=== PATIENT | male | born 1950 | race Caucasian/White ===

== ENCOUNTER 2018-03-23 06:21 | Emergency (ER) | payer MEDICARE, MEDICAID, OTHER ==
[~2018-03-23] VITALS: Ht 172.7 cm; Wt 135.0 kg
[~2018-03-23 06:21] MED LIST: ATOR40TA PO; BUPR100T13 PO; CARV-49 PO; FURO-150 PO; HYDR-565 PO; ISOS60TA4 PO; LOSA1TAB41 PO; METF10004 PO; NITR0.4T SL
[2018-03-23 06:51] LABS: BASOPHILS # (AUTO) 0.1 X10'3 (0-0.2); BASOPHILS % (AUTO) 0.9 % (0-1); EOSINOPHILS # (AUTO) 0.2 X10'3 (0-0.9); EOSINOPHILS % (AUTO) 1.5 % (0-6); HEMATOCRIT 44.2 % (42.0-52.0); HEMOGLOBIN 14.9 g/dl (14.0-17.9); LYMPHOCYTES # (AUTO) 3.5 X10'3 (1.1-4.8); LYMPHOCYTES % (AUTO) 27.1 % (21-51); MEAN CORPUSCULAR HEMOGLOBIN 30.7 PG (27.0-31.0); MEAN CORPUSCULAR HGB CONC 33.7 % (33.0-36.5); MEAN CORPUSCULAR VOLUME 91.1 FL (78-98); MEAN PLATELET VOLUME 8.8 FL (7.4-10.4); MONOCYTES % (AUTO) 7.7 % (2-12); NEUTROPHILS # (AUTO) 8.2 X10'3 (1.8-7.7); NEUTROPHILS % (AUTO) 62.8 % (42-75); PLATELET COUNT 239 X10'3 (140-440); RED BLOOD COUNT 4.86 X10'6 (4.70-6.10)
[2018-03-23 07:00] LABS: PROTHROMBIN TIME 10.4 SECONDS (9.0-12.0)
[2018-03-23 07:06] LABS: ALANINE AMINOTRANSFERASE 28 U/L (12-78); ALBUMIN 3.5 G/DL (3.4-5.0); ALKALINE PHOSPHATASE 75 IU/L (46-116); ANION GAP 9 (8-16); ASPARTATE AMINO TRANSFERASE 15 U/L (10-37); BILIRUBIN,TOTAL 0.7 MG/DL (0.1-1.0); BLOOD UREA NITROGEN 19 MG/DL (7-18); BUN/CREATININE RATIO 19.2 (5.4-32.0); CHLORIDE 101 MMOL/L (99-107); CREATININE 0.99 MG/DL (0.60-1.10); GLUCOSE 123 MG/DL (70-104); LIPASE 99 U/L (73-393); POTASSIUM 4.3 MMOL/L (3.5-5.1); SODIUM 139 MMOL/L (135-145); TOTAL CARBON DIOXIDE 29.4 MMOL/L (24-32); eGFR 76 ML/MIN
[2018-03-23] MEDS ORDERED: morphine 4 MG/ML inj SYRINge IV ONE (07:20)
[2018-03-23] MEDS ORDERED: ketorolac trometh. 30mg/ml inj. IV ONE (07:20)
[2018-03-23] MEDS ORDERED: HYDR-565 PO (08:26)
[2018-03-23 08:40] VITALS: BP 178/89
[2018-03-23 08:55] LABS: CLARITY,URINE SLIGHTLY CLOUDY (Clear); COLOR,URINE YELLOW (Yellow); GLUCOSE, URINE NEGATIVE (Neg); KETONES,URINE NEGATIVE (Neg); LEUKOCYTE ESTERASE ,URINE NEGATIVE (Neg); NITRITES, URINE NEGATIVE (Neg); OCCULT BLOOD,URINE NEGATIVE (Neg); PROTEIN,URINE TRACE mg/dl (Neg); UROBILINOGEN,URINE 0.2 E.U/dL (0.2-1.0)
[2018-03-23 08:57] LABS: UA COLLECTION TYPE CLN CATCH MIDSTREAM
[2018-03-23 09:07] LABS: BACTERIA,URINE NONE SEEN /HPF (Neg); MUCUS STRANDS MODERATE /LPF (Neg); RBC,URINE 0-2 /HPF (0-2); SQUAMOUS EPITHELIAL CELL,UR FEW /LPF (FEW); WBC,URINE 0-4 /HPF (0-4)
== END 2018-03-23 08:42 | disposition home or self-care (01) ==
LOC: ER 06:21
DX: M54.9 Dorsalgia, unspecified (principal); R10.11 Right upper quadrant pain; I25.10 Atherosclerotic heart disease of native coronary artery without angina pectoris; E78.00 Pure hypercholesterolemia, unspecified; I10 Essential (primary) hypertension; I25.2 Old myocardial infarction; F17.200 Nicotine dependence, unspecified, uncomplicated; G89.29 Other chronic pain; Z98.61 Coronary angioplasty status; Z98.890 Other specified postprocedural states; Z79.84 Long term (current) use of oral hypoglycemic drugs; Z79.899 Other long term (current) drug therapy
CPT/HCPCS: 36415; 74176; 80053; 81001; 83690; 85025; 85610; 93005; 96374; 96375; 99285; J1885; J2270

== ENCOUNTER 2020-09-28 12:06 | Emergency (ER) | payer OTHER, MEDICARE, MEDICAID ==
[~2020-09-28] VITALS: Ht 172.7 cm; Wt 129.5 kg
[~2020-09-28 12:06] MED LIST changes: +HYDR-4353 PO; -HYDR-565 PO; +METF-438 PO; -METF10004 PO
[2020-09-28 12:47] LABS: BASOPHILS % (AUTO) 0.7 % (0-1); EOSINOPHILS # (AUTO) 0.3 X10'3 (0-0.9); EOSINOPHILS % (AUTO) 4.3 % (0-6); HEMATOCRIT 39.8 % (42.0-52.0); HEMOGLOBIN 13.5 g/dl (14.0-17.9); LYMPHOCYTES # (AUTO) 2.4 X10'3 (1.1-4.8); LYMPHOCYTES % (AUTO) 34.9 % (21-51); MEAN CORPUSCULAR HGB CONC 33.9 g/dL (33.0-36.5); MEAN CORPUSCULAR VOLUME 91.7 FL (78-98); MEAN PLATELET VOLUME 8.8 FL (7.4-10.4); MONOCYTES # (AUTO) 0.6 X10'3 (0-0.9); MONOCYTES % (AUTO) 8.1 % (2-12); NEUTROPHILS # (AUTO) 3.6 X10'3 (1.8-7.7); PLATELET COUNT 211 X10'3 (140-440); RED BLOOD COUNT 4.34 X10'6 (4.70-6.10); RED CELL DISTRIBUTION WIDTH 14.2 % (11.5-14.5); WHITE BLOOD COUNT 6.9 X10'3 (4.5-11.0)
[2020-09-28 13:01] LABS: PARTIAL THROMBOPLASTIN TIME 27 SECONDS (22-32)
[2020-09-28 13:10] LABS: BILIRUBIN,TOTAL 0.4 MG/DL (0.1-1.0); BLOOD UREA NITROGEN 23 MG/DL (7-18); BUN/CREATININE RATIO 27.7 (5.4-32.0); CHLORIDE 106 MMOL/L (99-107); CREATININE 0.83 MG/DL (0.60-1.10); GLUCOSE 172 MG/DL (70-104); POTASSIUM 3.7 MMOL/L (3.5-5.1); SODIUM 143 MMOL/L (135-145); eGFR > 90 ML/MIN
[2020-09-28 13:12] LABS: TROPONIN I < 0.04 NG/ML (0.0-0.05)
[2020-09-28 13:17] LABS: ALANINE AMINOTRANSFERASE 39 U/L (12-78); ALBUMIN 3.5 G/DL (3.4-5.0); ALBUMIN/GLOBULIN RATIO 1.1 (1.1-1.5); ALKALINE PHOSPHATASE 82 IU/L (46-116); ANION GAP 7 (8-16); ASPARTATE AMINO TRANSFERASE 17 U/L (10-37); CALCIUM 8.7 MG/DL (8.5-10.1); TOTAL CARBON DIOXIDE 29.7 MMOL/L (24-32); TOTAL PROTEIN 6.8 G/DL (6.4-8.2)
--- NOTE | 2020-09-28 16:05 | NUR ---
PT HAS HX OF PARKINSONS
[2020-09-28 16:06] VITALS: BP 143/97
== END 2020-09-28 16:07 | disposition home or self-care (01) ==
LOC: ER 12:07
DX: G62.9 Polyneuropathy, unspecified (principal); I25.10 Atherosclerotic heart disease of native coronary artery without angina pectoris; E78.00 Pure hypercholesterolemia, unspecified; I10 Essential (primary) hypertension; I25.2 Old myocardial infarction; G89.29 Other chronic pain; Z98.890 Other specified postprocedural states; Z79.899 Other long term (current) drug therapy
CPT/HCPCS: 36415; 70450; 71045; 80053; 84484; 85025; 85610; 85730; 93005; 99285

== ENCOUNTER 2022-02-25 10:37 | Emergency (ER) | payer OTHER, MEDICARE, MEDICAID ==
[~2022-02-25] VITALS: Ht 172.7 cm; Wt 126.0 kg
[~2022-02-25 10:37] MED LIST changes: +ATOR-2 PO; -ATOR40TA PO; -BUPR100T13 PO; +BUPR300T7 PO; -CARV-49 PO; +FLO0.4C PO; -HYDR-4353 PO; +ISOS30TA84 PO; -ISOS60TA4 PO
[2022-02-25 11:41] LABS: BASOPHILS % (AUTO) 0.6 % (0-1); EOSINOPHILS # (AUTO) 0.2 X10'3 (0-0.9); EOSINOPHILS % (AUTO) 3.3 % (0-6); HEMATOCRIT 41.5 % (42.0-52.0); HEMOGLOBIN 13.8 g/dl (14.0-17.9); LYMPHOCYTES # (AUTO) 2.2 X10'3 (1.1-4.8); LYMPHOCYTES % (AUTO) 31.8 % (21-51); MEAN CORPUSCULAR HEMOGLOBIN 30.5 PG (27.0-31.0); MEAN CORPUSCULAR HGB CONC 33.3 g/dL (33.0-36.5); MEAN CORPUSCULAR VOLUME 91.6 FL (78-98); MEAN PLATELET VOLUME 8.5 FL (7.4-10.4); MONOCYTES # (AUTO) 0.7 X10'3 (0-0.9); MONOCYTES % (AUTO) 10.4 % (2-12); NEUTROPHILS # (AUTO) 3.7 X10'3 (1.8-7.7); NEUTROPHILS % (AUTO) 53.9 % (42-75); PLATELET COUNT 197 X10'3 (140-440); RED BLOOD COUNT 4.53 X10'6 (4.70-6.10); RED CELL DISTRIBUTION WIDTH 14.4 % (11.5-14.5); WHITE BLOOD COUNT 6.9 X10'3 (4.5-11.0)
[2022-02-25 11:58] LABS: ALANINE AMINOTRANSFERASE 34 U/L (12-78); ALBUMIN 3.6 G/DL (3.4-5.0); ALBUMIN/GLOBULIN RATIO 1.1 (1.1-1.5); ALKALINE PHOSPHATASE 72 IU/L (46-116); ANION GAP 12 (8-16); ASPARTATE AMINO TRANSFERASE 21 U/L (10-37); BILIRUBIN,TOTAL 0.4 MG/DL (0.1-1.0); BLOOD UREA NITROGEN 20 MG/DL (7-18); BUN/CREATININE RATIO 22.2 (5.4-32.0); CALCIUM 8.9 MG/DL (8.5-10.1); CHLORIDE 109 MMOL/L (99-107); GLUCOSE 94 MG/DL (70-104); POTASSIUM 3.7 MMOL/L (3.5-5.1); SODIUM 146 MMOL/L (135-145); TOTAL CARBON DIOXIDE 24.9 MMOL/L (24-32); TOTAL PROTEIN 6.8 G/DL (6.4-8.2); eGFR 83 ML/MIN
--- NOTE | 2022-02-25 12:18 | NUR ---
To CT at this time.
[2022-02-25 14:10] LABS: CLARITY,URINE CLEAR (Clear); GLUCOSE, URINE >=1000 mg/dl (Neg); KETONES,URINE NEGATIVE (Neg); LEUKOCYTE ESTERASE ,URINE NEGATIVE (Neg); NITRITES, URINE NEGATIVE (Neg); OCCULT BLOOD,URINE NEGATIVE (Neg); PROTEIN,URINE NEGATIVE (Neg); UROBILINOGEN,URINE 0.2 E.U/dL (0.2-1.0)
[2022-02-25 14:12] LABS: COLOR,URINE STRAW (Yellow); UA COLLECTION TYPE CLN CATCH MIDSTREAM
[2022-02-25 14:26] LABS: BACTERIA,URINE NONE SEEN /HPF (Neg); MUCUS STRANDS NONE SEEN /LPF (Neg); RBC,URINE NONE SEEN /HPF (0-2); SQUAMOUS EPITHELIAL CELL,UR NONE SEEN /LPF (FEW); WBC,URINE 0-4 /HPF (0-4)
[2022-02-25 14:37] VITALS: BP 121/69
== END 2022-02-25 14:38 | disposition home or self-care (01) ==
LOC: ER 10:38
DX: G89.29 Other chronic pain (principal); M54.59 Other low back pain; E78.00 Pure hypercholesterolemia, unspecified; I11.9 Hypertensive heart disease without heart failure; E06.9 Thyroiditis, unspecified; E11.9 Type 2 diabetes mellitus without complications; L40.9 Psoriasis, unspecified
CPT/HCPCS: 36415; 70450; 80053; 81001; 85025; 99284

== ENCOUNTER 2025-01-12 17:36 | Inpatient (IN) | payer BC, MEDICAID, OTHER ==
[~2025-01-12] VITALS: Ht 172.7 cm; Wt 126.6 kg
[2025-01-12 19:01] LABS: ALBUMIN 3.6 G/DL (3.4-5.0); ANION GAP 11 (8-16); BLOOD UREA NITROGEN 19 MG/DL (7-18); BUN/CREATININE RATIO 22.4 (10.0-20.0); CALCIUM 8.9 MG/DL (8.5-10.1); CHLORIDE 102 MMOL/L (99-107); CREATININE 0.85 MG/DL (0.60-1.10); GLUCOSE 271 MG/DL (70-104); POTASSIUM 3.4 MMOL/L (3.5-5.1); SODIUM 140 MMOL/L (135-145); TOTAL CARBON DIOXIDE 26.8 MMOL/L (24-32); eCRCL 75 ML/MIN; eGFR 88 ML/MIN
[2025-01-12 19:04] LABS: BASOPHILS % (AUTO) 0.7 % (0-1); EOSINOPHILS # (AUTO) 0.3 X10'3 (0-0.9); EOSINOPHILS % (AUTO) 4.4 % (0-6); HEMOGLOBIN 14.5 g/dl (14.0-17.9); LYMPHOCYTES # (AUTO) 2.2 X10'3 (1.1-4.8); LYMPHOCYTES % (AUTO) 33.4 % (21-51); MEAN CORPUSCULAR HEMOGLOBIN 32.1 PG (27.0-31.0); MEAN CORPUSCULAR HGB CONC 34.6 g/dL (33.0-36.5); MEAN CORPUSCULAR VOLUME 92.9 FL (78-98); MEAN PLATELET VOLUME 9.5 FL (7.4-10.4); MONOCYTES # (AUTO) 0.6 X10'3 (0-0.9); MONOCYTES % (AUTO) 8.6 % (2-12); NEUTROPHILS # (AUTO) 3.5 X10'3 (1.8-7.7); NEUTROPHILS % (AUTO) 52.9 % (42-75); PLATELET COUNT 250 X10'3 (140-440); RED BLOOD COUNT 4.52 X10'6 (4.70-6.10); RED CELL DISTRIBUTION WIDTH 13.5 % (11.5-14.5); WHITE BLOOD COUNT 6.7 X10'3 (4.5-11.0)
[2025-01-12 19:05] LABS: APTT 29 SECONDS (22-32); PROTHROMBIN TIME 10.9 SECONDS (9.0-12.0)
[2025-01-12] MEDS ORDERED: iohexol 350MG/ML 100ml bottle IV ONE (23:27)
[2025-01-13] MEDS ORDERED: bisacodyl 10mg suppository rectal RC PRN (01:25)
[2025-01-13] MEDS ORDERED: potassium Cl 40MEQ/1/2NS 520ml 520 ML IV PRN (01:25)
[2025-01-13] MEDS ORDERED: ondansetron/PF 4mg/2ml inj IV PRN (01:25)
[2025-01-13] MEDS ORDERED: magnesium Cl slow-release 64mg tablet PO PRN (01:25)
[2025-01-13] MEDS ORDERED: magnesium sulf-water 4G/100mL 100 ML IV PRN (01:25)
[2025-01-13] MEDS ORDERED: mag hydrox/Alum hydrox/simeth 30ml oral suspension PO PRN (01:25)
[2025-01-13] MEDS ORDERED: magnesium sulf-water 2g/50mL 50 ML IV PRN (01:25)
[2025-01-13] MEDS ORDERED: morphine 2 MG/ML inj. syringe IV PRN (01:25)
[2025-01-13] MEDS ORDERED: potassium Cl 20 mEq SR tablet PO PRN (01:25)
[2025-01-13] MEDS ORDERED: acetaminophen 325mg tablet PO PRN (01:25)
[2025-01-13] MEDS: atorvastatin 20mg tablet PO SCH (02:01)
[2025-01-13] MEDS: clopidogrel 300mg tablet PO ONE (02:01)
[2025-01-13] MEDS ORDERED: glucagon, human recombinant 1mg kit SUBCUT PRN (02:45)
[2025-01-13] MEDS ORDERED: DEXTROSE 15 GM of carb/4 tabs (each vial/BOTTLE has 4 tablets) PO PRN ×2 (02:45)
[2025-01-13] MEDS ORDERED: dextrose 50%-water 50ml dispensing syringe IV PRN ×2 (02:45)
[2025-01-13] MEDS ORDERED: HYDR-3973 (02:55)
[2025-01-13] MEDS ORDERED: AMLO-381 PO (02:55)
[2025-01-13] MEDS ORDERED: ASPI-1265 PO (02:55)
[2025-01-13] MEDS ORDERED: CHLO25TA10 PO (02:55)
[2025-01-13] MEDS ORDERED: EMPA25TA PO (02:55)
[2025-01-13] MEDS ORDERED: DULO-31 PO (02:55)
[2025-01-13] MEDS ORDERED: BUPR75FI3 PO (02:56)
[2025-01-13 03:14] LABS: HEMOGLOBIN A1C 7.3 % (4.5-6.2)
[2025-01-13 03:17] LABS: APTT 29 SECONDS (22-32); PROTHROMBIN TIME 10.9 SECONDS (9.0-12.0)
[2025-01-13] MEDS: insulin glargine (Lantus) pen - multi-dose SQ SCH (03:24)
[2025-01-13 03:32] LABS: PRO BRAIN NATRIURETIC PEPTIDE < 30 PG/ML (0-125)
[2025-01-13] MEDS: potassium Cl 20 mEq SR tablet PO PRN (03:42)
[2025-01-13] MEDS: INSULIN LISPRO 100 UNIT/ML INSULN.PEN MULTI-DOSE SQ SCH (07:00)
[2025-01-13] MEDS: BUPRENORPHINE HCL 75 MCG BU SCH (07:43)
[2025-01-13] MEDS: docusate sod 100mg capsule PO SCH (07:44)
[2025-01-13] MEDS: losartan 50mg tablet PO SCH (07:45)
[2025-01-13] MEDS: duloxetine 30mg CAPSULE.DR PO SCH (07:45)
[2025-01-13] MEDS: tamsulosin 0.4mg capsule PO SCH (07:45)
[2025-01-13] MEDS: amLODIPine 5mg tablet PO SCH (07:46)
[2025-01-13] MEDS: aspirin 81mg, enteric-coated 1 TAB TABLET.DR PO SCH (07:46)
[2025-01-13] MEDS: isosorbide mononitrate 30mg tab.SR.24H PO SCH (07:46)
[2025-01-13] MEDS: clopidogrel 75mg tablet PO SCH (07:47)
[2025-01-13] MEDS: K and/or MAG REPLACEMENT MC SCH (07:48)
[2025-01-13] MEDS: enoxaparin 40mg/0.4ml syringe SUBCUT SCH (07:48)
[2025-01-13] MEDS: chlorthalidone 25mg tablet PO SCH (07:53)
[2025-01-13 08:15] LABS: BASOPHILS # (AUTO) 0.1 X10'3 (0-0.2); BASOPHILS % (AUTO) 0.8 % (0-1); EOSINOPHILS # (AUTO) 0.3 X10'3 (0-0.9); EOSINOPHILS % (AUTO) 4.8 % (0-6); HEMATOCRIT 43.7 % (42.0-52.0); HEMOGLOBIN 14.9 g/dl (14.0-17.9); LYMPHOCYTES # (AUTO) 1.9 X10'3 (1.1-4.8); LYMPHOCYTES % (AUTO) 30.6 % (21-51); MEAN CORPUSCULAR HEMOGLOBIN 31.5 PG (27.0-31.0); MEAN CORPUSCULAR HGB CONC 34.2 g/dL (33.0-36.5); MEAN CORPUSCULAR VOLUME 92.1 FL (78-98); MEAN PLATELET VOLUME 8.7 FL (7.4-10.4); MONOCYTES # (AUTO) 0.6 X10'3 (0-0.9); MONOCYTES % (AUTO) 9.7 % (2-12); NEUTROPHILS # (AUTO) 3.4 X10'3 (1.8-7.7); NEUTROPHILS % (AUTO) 54.1 % (42-75); PLATELET COUNT 229 X10'3 (140-440); RED BLOOD COUNT 4.75 X10'6 (4.70-6.10); RED CELL DISTRIBUTION WIDTH 13.5 % (11.5-14.5); WHITE BLOOD COUNT 6.3 X10'3 (4.5-11.0)
[2025-01-13 08:30] LABS: ALANINE AMINOTRANSFERASE 38 U/L (12-78); ALBUMIN 3.8 G/DL (3.4-5.0); ALBUMIN/GLOBULIN RATIO 1.2 (1.1-1.5); ALKALINE PHOSPHATASE 73 IU/L (46-116); ANION GAP 6 (8-16); ASPARTATE AMINO TRANSFERASE 17 U/L (10-37); BILIRUBIN,TOTAL 0.8 MG/DL (0.1-1.0); BLOOD UREA NITROGEN 17 MG/DL (7-18); BUN/CREATININE RATIO 23.9 (10.0-20.0); CALCIUM 8.8 MG/DL (8.5-10.1); CHLORIDE 104 MMOL/L (99-107); CREATININE 0.71 MG/DL (0.60-1.10); GLUCOSE 171 MG/DL (70-104); POTASSIUM 3.8 MMOL/L (3.5-5.1); SODIUM 141 MMOL/L (135-145); TOTAL CARBON DIOXIDE 31.3 MMOL/L (24-32); eCRCL 90 ML/MIN; eGFR > 90 ML/MIN
[2025-01-13 08:37] LABS: PRO BRAIN NATRIURETIC PEPTIDE < 30 PG/ML (0-125)
[2025-01-13 10:45] LABS: BILIRUBIN,URINE NEGATIVE (Neg); CLARITY,URINE CLEAR (Clear); COLOR,URINE YELLOW (Yellow); GLUCOSE, URINE >=1000 mg/dl (Neg); KETONES,URINE NEGATIVE (Neg); LEUKOCYTE ESTERASE ,URINE NEGATIVE (Neg); NITRITES, URINE NEGATIVE (Neg); OCCULT BLOOD,URINE NEGATIVE (Neg); PROTEIN,URINE NEGATIVE (Neg); UROBILINOGEN,URINE 0.2 E.U/dL (0.2-1.0)
[2025-01-13 10:58] LABS: UA COLLECTION TYPE NON-SPECIFIED
[2025-01-13 11:00] LABS: BACTERIA,URINE NONE SEEN /HPF (Neg); MUCUS STRANDS NONE SEEN /LPF (Neg); RBC,URINE 0-2 /HPF (0-2); SQUAMOUS EPITHELIAL CELL,UR NONE SEEN /LPF (FEW); WBC,URINE 0-4 /HPF (0-4)
[2025-01-13 11:40] VITALS: BP 146/72; PULSE 62; RESP 16; TEMP 97.4; O2SAT 97
[2025-01-13] MEDS: magnesium hydroxide 30ml (MOM) UD suspension PO PRN (12:33)
[2025-01-13 12:59] VITALS: BP_SYST 114; BP_SYST 118; BP_SYST 122; BP_DIAS 55; BP_DIAS 62; BP_DIAS 65; PULSE 63; PULSE 64; PULSE 72
[2025-01-13] MEDS: HYDROcodone/acetaminophen 5mg/325mg tablet PO PRN (17:16)
[2025-01-13 18:00] VITALS: BP 121/68; PULSE 73; RESP 16; TEMP 97.8; O2SAT 97
[2025-01-13 20:01] VITALS: RESP 18
[2025-01-13 22:00] VITALS: BP 100/48; PULSE 69; RESP 16; TEMP 97.2; O2SAT 96
[2025-01-14 02:00] VITALS: BP 113/53; PULSE 59; RESP 15; TEMP 98.3; O2SAT 93
[2025-01-14 06:00] VITALS: BP 106/49; PULSE 54; RESP 18; TEMP 96.3; O2SAT 93
[2025-01-14 07:24] LABS: ALANINE AMINOTRANSFERASE 30 U/L (12-78); ALBUMIN 3.2 G/DL (3.4-5.0); ALBUMIN/GLOBULIN RATIO 1.1 (1.1-1.5); ALKALINE PHOSPHATASE 63 IU/L (46-116); ANION GAP 9 (8-16); BILIRUBIN,TOTAL 0.8 MG/DL (0.1-1.0); BLOOD UREA NITROGEN 19 MG/DL (7-18); BUN/CREATININE RATIO 29.2 (10.0-20.0); CALCIUM 8.6 MG/DL (8.5-10.1); CHLORIDE 105 MMOL/L (99-107); CHOL/HDL RATIO 1.8 (0.00-4.99); CHOLESTEROL 107 MG/DL (0-200); CREATININE 0.65 MG/DL (0.60-1.10); GLUCOSE 117 MG/DL (70-104); HDL CHOLESTEROL 59 MG/DL (35-60); LDL CHOLESTEROL 40 MG/DL (50-100); SODIUM 141 MMOL/L (135-145); TOTAL CARBON DIOXIDE 27.1 MMOL/L (24-32); TOTAL PROTEIN 6.2 G/DL (6.4-8.2); TRIGLYCERIDES 68 MG/DL (20-135); eCRCL 98 ML/MIN; eGFR > 90 ML/MIN
[2025-01-14 07:28] LABS: ASPARTATE AMINO TRANSFERASE 33 U/L (10-37); POTASSIUM 3.9 MMOL/L (3.5-5.1)
[2025-01-14 07:42] VITALS: BP 124/78; PULSE 62
[2025-01-14 07:43] VITALS: BP 114/71; PULSE 64
[2025-01-14] MEDS: losartan 50mg tablet PO SCH (08:00)
[2025-01-14] MEDS: chlorthalidone 25mg tablet PO SCH (08:27)
[2025-01-14 08:54] LABS: BASOPHILS # (AUTO) 0.1 X10'3 (0-0.2); EOSINOPHILS # (AUTO) 0.3 X10'3 (0-0.9); EOSINOPHILS % (AUTO) 5.5 % (0-6); HEMATOCRIT 42.4 % (42.0-52.0); HEMOGLOBIN 14.3 g/dl (14.0-17.9); LYMPHOCYTES # (AUTO) 2.1 X10'3 (1.1-4.8); LYMPHOCYTES % (AUTO) 36.1 % (21-51); MEAN CORPUSCULAR HEMOGLOBIN 30.9 PG (27.0-31.0); MEAN CORPUSCULAR HGB CONC 33.6 g/dL (33.0-36.5); MEAN CORPUSCULAR VOLUME 91.9 FL (78-98); MEAN PLATELET VOLUME 9.2 FL (7.4-10.4); MONOCYTES # (AUTO) 0.6 X10'3 (0-0.9); MONOCYTES % (AUTO) 10.5 % (2-12); NEUTROPHILS # (AUTO) 2.7 X10'3 (1.8-7.7); NEUTROPHILS % (AUTO) 46.9 % (42-75); PLATELET COUNT 203 X10'3 (140-440); RED BLOOD COUNT 4.61 X10'6 (4.70-6.10); RED CELL DISTRIBUTION WIDTH 13.5 % (11.5-14.5); WHITE BLOOD COUNT 5.7 X10'3 (4.5-11.0)
[2025-01-14 10:00] VITALS: BP 120/59; PULSE 64; RESP 15; TEMP 97.3; O2SAT 95
[2025-01-14] MEDS ORDERED: LOSA50TA64 PO (10:16)
[2025-01-14] MEDS ORDERED: DULO-31 PO (10:16)
[2025-01-14] MEDS ORDERED: CHLO25TA11 PO (10:16)
== END 2025-01-14 12:25 | disposition home or self-care (01) | DRG 149 ==
LOC: ER 17:37 → UNDOADMIN 01-13 01:31 → ED HOLD 01-13 01:31 → ORTHO 4S 01-13 11:40 → ED HOLD 01-13 11:40
PROVIDERS: ADMIT Surgery Surgical Critical Care; ATTEND Internal Medicine
PROC: B3251ZZ Computerized Tomography (CT Scan) of Bilateral Common Carotid Arteries using Low Osmolar Contrast (ICD-10-PCS; principal; 2025-01-12)
PROC: B32G1ZZ Computerized Tomography (CT Scan) of Bilateral Vertebral Arteries using Low Osmolar Contrast (ICD-10-PCS; 2025-01-12)
PROC: B32R1ZZ Computerized Tomography (CT Scan) of Intracranial Arteries using Low Osmolar Contrast (ICD-10-PCS; 2025-01-12)
PROC: B3281ZZ Computerized Tomography (CT Scan) of Bilateral Internal Carotid Arteries using Low Osmolar Contrast (ICD-10-PCS; 2025-01-12)
DX: R42 Dizziness and giddiness (principal); Z68.41 Body mass index [BMI] 40.0-44.9, adult; E78.00 Pure hypercholesterolemia, unspecified; I25.10 Atherosclerotic heart disease of native coronary artery without angina pectoris; T50.995A Adverse effect of other drugs, medicaments and biological substances, initial encounter; E66.01 Morbid (severe) obesity due to excess calories; I10 Essential (primary) hypertension; N40.0 Benign prostatic hyperplasia without lower urinary tract symptoms; E11.9 Type 2 diabetes mellitus without complications; G89.4 Chronic pain syndrome; E03.9 Hypothyroidism, unspecified; M54.9 Dorsalgia, unspecified; Z79.84 Long term (current) use of oral hypoglycemic drugs; Z79.899 Other long term (current) drug therapy; Z90.49 Acquired absence of other specified parts of digestive tract; I25.2 Old myocardial infarction; Y92.89 Other specified places as the place of occurrence of the external cause; Z86.73 Personal history of transient ischemic attack (TIA), and cerebral infarction without residual deficits; Z95.5 Presence of coronary angioplasty implant and graft; Z85.820 Personal history of malignant melanoma of skin
CPT/HCPCS: 36415; 70450; 70496; 70498; 70551; 71045; 80048; 80053; 80061; 81001; 82948; 83036; 83735; 83880; 84132; 85025; 85610; 85730; 87081; 93005; 93306; 96372; 97161; 97530; 99285; G0378; J1650; J1815; Q9967

== ENCOUNTER 2025-05-07 21:05 | Inpatient (IN) | payer OTHER, BC, MEDICAID ==
[~2025-05-07] VITALS: Ht 172.7 cm; Wt 127.0 kg
[~2025-05-07 21:05] MED LIST changes: +ASPI-1265 PO; -BUPR300T7 PO; +DULO-31 PO; +EMPA25TA PO; -FURO-150 PO; +HYDR-3973; -LOSA1TAB41 PO; +LOSA50TA64 PO
--- NOTE | 2025-05-07 21:18 | ELECTROCARDIOGRAPH REPORT ---
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 Geovanni Vizcaino Measurements Intervals [place] Rate: 69 P: 34 ME: 196 QRS: 3 QRSD: 103 T: -29 QT: 381 QTc: 408 Interpretive Statements Sinus rhythm Abnormal R-wave progression, early transition Nonspecific T abnormalities, diffuse leads Artifact in lead(s) I,II,III,aVR,aVL,V1,V5,V6 Electronically Signed On 05-08-2025 1:29:[address] Geovanni Vizcaino Please click the below link to view image of tracing.
[2025-05-07 21:40] LABS: MEAN PLATELET VOLUME 8.8 FL (7.4-10.4); RED CELL DISTRIBUTION WIDTH 14.5 % (11.5-14.5)
--- NOTE | 2025-05-07 22:02 | RADIOLOGY REPORT ---
CHEST RADIOGRAPH Indication: CP Technique: Single frontal view of the chest was obtained Comparison: DI CHEST,SINGLE VIEW on DOS: 02/21/25, DI CHEST,SINGLE VIEW on DOS: 01/12/25, CHEST,SINGLE V IEW on DOS: 12/05/21 FINDINGS: Lines and Tubes: None Lungs: No focal consolidation. Pleura: No effusion. No pneumothorax. Cardiomediastinal contours: Unremarkable Bones: No acute osseous abnormality. Partially imaged right-sided neural stimulator with the generato r overlying the right upper to mid lung zone. IMPRESSION: No acute cardiopulmonary disease.
[2025-05-07 22:04] LABS: CREATININE 0.80 MG/DL (0.60-1.10); PRO BRAIN NATRIURETIC PEPTIDE 100 PG/ML (0-125); TOTAL CARBON DIOXIDE 24.0 MMOL/L (24-32); eCRCL 80 ML/MIN; eGFR > 90 ML/MIN
--- NOTE | 2025-05-07 23:05 | Physician Documentation ---
History of Present Illness ~ Chief Complaint: Chest Pain Stated Complaint: CHEST PAIN Time Seen by MD: 21:51 OK to notify your PCP?: Yes Primary Medical Doctor: [facility] Source: patient, RN/, RN notes reviewed, old records Mode of Arrival: POV Exam Limitations: no limitations HPI PATIENT SEEN IN BED 6 This patient is a 74 y/o male who presents to ED with chief complaint of chest pain. Patient states that this pain started two days ago, and describes it as a sharp pain. He states that since his chest pain started, it has radiated to his shoulders, then his upper back. Patient reports that the pain has since changed location, and radiates from his chest to his lower back. He denies any ripping or tearing sensations. He does have a history of MO, TIA and CVA. He is followed by narcotics agent, Dr. Luther. Patient denies any other associated symptoms at this time. Patient denies any other alleviating or exacerbating factors. Medication Reconciliation Allergies: Uncoded Allergies: BLOOD (Allergy, Severe, (ALEVISM REASON), 02/21/25) Scheduled Aspirin (Aspirin), 1 TAB.CHEW PO DAILY, (Reported) Atorvastatin Calcium (Atorvastatin Calcium), 1 TAB PO DAILY, (Reported) Duloxetine Hcl* (Cymbalta*), 30 MG PO DAILY Empagliflozin (Jardiance), 1 TAB PO DAILY, (Reported) Isosorbide Mononitrate (Isosorbide Mononitrate Er), 0.5 TAB PO QAM, (Reported) Levothyroxine Sodium* (Synthroid*), Unknown Dose PO DAILY, (Reported) Losartan Potassium (Losartan Potassium), 50 MG PO DAILY Metformin HCl (Metformin HCl), 1 TAB PO Q12H, (Reported) Tamsulosin Hcl (Flomax), 1 CAP PO DAILY, (Reported) Tizanidine Hcl (Zanaflex), 1 CAP PO HS, (Reported) Miscellaneous Medications Hydrocodone Bit/Acetaminophen (Hydrocodone-Apap 10-325 Tablet), (Reported) Nitroglycerin (Nitrostat), 0.4 MG SL, (Reported) Past Medical History 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*, Coronary Artery Disease, High Cholesterol, Hypertension, Myocardial Infarction, Sleep Apnea, BPH, Diabetes, Hypothyroidism, Chronic Pain, Chronic Back Pain, Psoriasis Past Surgical History: angioplasty, brain surgery, cholecystectomy, orthopedic surgeries Patient History: FH: COPD (chronic obstructive pulmonary disease) MOTHER FH: diabetes mellitus MOTHER Brother FH: myocardial infarction FATHER Smoking Status: Unknown if ever smoked Alcohol Use: None Drug Use: none Lives with: Spouse, Family Lives In: Home Review of Systems All Other Systems at this time: Reviewed and Negative Cardiovascular: Reports: chest pain Physical Exam Vital Signs: RN Vital Signs have been reviewed: Yes, Temperature: 97.8, Source: Oral, Heart Rate: 70, Respiratory Rate: 19, BP: 183/94, Pulse Oximetry: 94, Weight: 127.270 Physical Exam General: The patient is well developed, well nourished, nontoxic appearing and is in no acute distress. Skin: [place], warm and dry with no rashes. HEENT: Head was normocephalic and atraumatic. Eyes - pupils equal, round, reactive to light and accommodation. Extraocular movements were intact. Conjunctivae were nonicteric. The mouth and oropharynx were clear with moist mucous membranes. There were no pharyngeal exudates or erythema. Neck: Supple and nontender. There was no jugular venous distention, lymphadenopathy, thyromegaly or masses. Chest: No reproducible chest wall pain. Clear to auscultation bilaterally without wheezes, rales or rhonchi. No accessory muscle use. No dullness to percussion. Heart: Rate regular and rhythmic. S1, S2. No murmurs. Palpation of the chest wall was normal. No rubs or thrills. Abdomen: Soft, nontender and nondistended. Positive bowel sounds. No guarding or rebound. No hepatosplenomegaly or palpable masses. Extremities: Pitting edema to bilateral lower extremities. No clubbing or cyanosis. The patient moves all extremities. Pulses were equal and symmetric. Neurologic: Cranial nerves II-XII were intact. Sensation was intact to light touch throughout. Motor strength was 5/5 in all four extremities. Deep tendon reflexes were intact in both upper and lower extremities. Psychologic: The patient was oriented to person, place and time. The patient demonstrated appropriate judgement and insight. Progress Progress Note 0004: Paged Hospitalist 0008: Case discussed with hospitalist who agrees to evaluate patient for admission. Results/Orders Reviewed/noted all lab results: Yes Results/Orders Orders - STEPHEN VIZCAINO MD Chest,Single View (05/07/25 21:12) Monitor (05/07/25 21:12) Saline Lock (05/07/25 21:12) Oxygen (05/07/25 21:12) Electrocardiogram (05/07/25 21:12) Cta Aorta Disection (05/07/25 23:06) Page Hospitalist (05/08/25 00:04) Fill Out Med Reconciliation (05/08/25 00:04) Page Hospitalist (05/08/25 00:04) Fill Out Med Reconciliation (05/08/25 00:04) Completed Orders - STEPHEN VIZCAINO MD Chest,Single View (05/07/25 21:12) Cbc/Diff (05/07/25 21:12) BMP (05/07/25 21:12) PBNP (05/07/25 21:12) Electrocardiogram (05/07/25 21:12) Hs Troponin I W Calculations (05/07/25 21:12) Hs Troponin I W Calculations (05/08/25 00:12) Cta Aorta Disection (05/07/25 23:06) Iohexol 350mg/Ml 100ml (Omnipaque 350mg/ (05/07/25 23:10) Aspirin 81mg Chew Tablet (Aspirin 81mg C (05/08/25 00:10) Hgb A1c (05/07/25 21:30) Medications Received in ER Medications (Trade) Dose Ordered Sig/Jocelyn Route PRN Reason Start Time Stop Time Status Last Admin Dose Admin (aspirin 81MG chew tablet) 324 mg ONCE ONCE PO 05/08/25 00:10 05/08/25 00:11 DC 05/08/25 01:00 324 MG Vital Signs 05/07/25 05/07/25 05/07/25 05/07/25 21:09 21:45 22:06 23:00 Temp 97.8 Pulse 69 70 68 Resp 18 20 19 13 B/P (MAP) 179/88 183/94 (123) 123/64 (83) Pulse Ox 94 94 94 05/08/25 00:00 Pulse 60 Resp 12 B/P (MAP) 151/93 (112) Pulse Ox 95 Laboratory Tests Test 05/07/25 21:30 05/07/25 21:46 05/07/25 23:02 White Blood Count 6.0 Red Blood Count 4.93 Hemoglobin 15.3 Hematocrit 45.4 Mean Corpuscular Volume 92.0 Mean Corpuscular Hemoglobin 30.9 Mean Corpuscular Hemoglobin Concent 33.6 Red Cell Distribution Width 14.5 Platelet Count 224 Mean Platelet Volume 8.8 Neutrophils (%) (Auto) 53.0 Lymphocytes (%) (Auto) 33.1 Monocytes (%) (Auto) 8.9 Eosinophils (%) (Auto) 4.5 Basophils (%) (Auto) 0.5 Neutrophils # (Auto) 3.2 Lymphocytes # (Auto) 2.0 Monocytes # (Auto) 0.5 Eosinophils # (Auto) 0.3 Basophils # (Auto) 0.0 CBC Comment Sodium Level 141 Potassium Level 4.2 Chloride Level 105 Carbon Dioxide Level 24.0 Anion Gap 12 Blood Urea Nitrogen 18 Creatinine 0.80 Estimated GFR/1.73 m2 > 90 BUN/Creatinine Ratio 22.5 H Glucose Level 212 H Hemoglobin A1c 6.8 H Calcium Level 9.0 Troponin I High Sensitivity 20 20 Pro-B-Type Natriuretic Peptide 100 Albumin 3.7 Chemistry Comments Urine Specimen Description Voided Urine Color Yellow Urine Clarity Clear Urine pH 6.0 Urine Specific [place] 1.020 Urine Protein Negative Urine Glucose (UA) >=1000 H Urine Ketones Negative Urine Occult Blood Negative Urine Nitrite Negative Urine Bilirubin Negative Urine Urobilinogen 0.2 Urine Leukocyte Esterase Negative Urine RBC None seen Urine WBC None seen Urine Squamous Epithelial Cells None seen Urine Bacteria None seen Urine Culture Indicated Not ind Volume Urine Centrifuged 10 ml Urine Comment Troponin I High Sens Percent Delta 0 Troponin I Hi Sens Absolute Change 0 Re-Evaluation Re-Evaluation : Re-Evaluation: Improved Progress Patient was seen and examined. Patient is given reassurance. Patient was complaining of chest pain. Patient is 74 has multiple risk factors. Pain is slightly concerning in that it is radiating to the neck changing location now radiating to the contralateral neck. Denies any sensation of tearing or ripping. The patient had a CT angiogram to rule out dissection and was within normal limits. That point in time patient will be admitted for cardiac workup. Laboratory work was reassuring. Normal chemistry negative troponins CBC also within normal limits no anemia. Patient was given aspirin and then admitted to the hospitalist service after life-threatening conditions for ruled out. Continuous nurse monitoring interpretation shows normal sinus rhythm heart rate 70s, no ectopy, normal, Pulse oximetry monitor interpretation shows normal oxygenation 95% room air, normal, my interpretation. EKG/XRAY/CT/US/VASC/MRI EKG : Additional Comment Patient: SALOME GRIJALVA Medical Record: [id number] [facility] : 1950, Age: 74Sex: M Location: ED HOLD Patient Status: ADM IN Service Date/Time: Ordering Physician: STEPHEN VIZCAINO MD Exam Name: ELECTROCARDIOGRAM Technologist: [facility] Test Date: 2025-05-07 Test Time: 21:16:13 Pat Name: SALOME GRIJALVA Department: EMERGENCY ROOM Room: ED 6 Gender: M Pacu Rn: IGOR : 1950 Requested By: STEPHEN VIZCAINO Order Number: [id number] [facility] Reading MD: Dr. Stephen Vizcaino Measurements Intervals [place] Rate: 69 P: 34 [place]: 196 QRS: 3 QRSD: 103 T: -29 QT: 381 QTc: 408 Interpretive Statements Sinus rhythm Abnormal R-wave progression, early transition Nonspecific T abnormalities, diffuse leads Artifact in lead(s) I,II,III,aVR,aVL,V1,V5,V6 Electronically Signed On 05-08-2025 1:29:[address] Stephen Vizcaino Please click the below link to view image of tracing. EKG Date and Time:05/07/252115 Electronically Signed by: STEPHEN VIZCAINO MD Date and Time: 05/08/25 012 NO PRIMARY CARE PROVIDER~ cc: ~ Chest X-Ray : Interpreted By: radiologist, both Views: 1 VIEW Additional Comments Patient: SALOME GRIJALVA Medical Record: [id number] [facility] : 1950, Age: 74 Sex: Male Location: ER Patient Status: REG ER Service Date/Time: 05/07/252111 Ordering Physician: STEPHEN VIZCAINO MD Exam: CHEST,SINGLE VIEW CHEST RADIOGRAPH Indication: CP Technique: Single frontal view of the chest was obtained Comparison: DI CHEST,SINGLE VIEW on DOS: 02/21/25, DI CHEST,SINGLE VIEW on DOS: 01/12/25, CHEST,SINGLE VIEW on DOS: 12/05/21 FINDINGS: Lines and Tubes: None Lungs: No focal consolidation. Pleura: No effusion. No pneumothorax. Cardiomediastinal contours: Unremarkable Bones: No acute osseous abnormality. Partially imaged right-sided neural stimulator with the generator overlying the right upper to mid lung zone. IMPRESSION: No acute cardiopulmonary disease. Electronically Signed by:ONELIA KLEIN DO Date & Time: 05/07/252199 Dictated by: ONELIA KLEIN DO Dictation date and time: 05/07/252199 Primary Care Provider: NO PRIMARY CARE PROVIDER cc: STEPHEN VIZCAINO MD ~ IMAGES REVIEWED BY EDMD DR. VIZCAINO WHO AGREES WITH ABOVE FINDINGS CT : Interpreted By: radiologist, both CT: chest With Contrast?: Yes Impression [address] [address] CAT SCAN Patient: SALOME GRIJALVA Medical Record: [id number] [facility] : 1950, Age: 74 Sex: Male Location: ED HOLD Patient Status: ADM IN Service Date/Time: 05/07/252305 Ordering Physician: STEPHEN VIZCAINO MD Exam: CTA AORTA DISECTION CTA AORTA DISSECTION W/ IV CONTRAST HISTORY: chest pain radiating to back tortous aorta COMPARISON: Chest x-ray obtained earlier the same day. TECHNIQUE: Helical axial CT images of the chest, abdomen and upper pelvis were obtained with intravenous contrast. Multiplanar reformats. 3-D postprocessing is performed by technologist including MIP imaging. One or more of the following radiation dose reduction techniques were used for this examination: automated exposure control, adjustment of the mA and/or kV according to patient size, use of iterative reconstruction technique. FINDINGS: Vasculature: Scattered atherosclerotic changes involving the arch and aortoiliac vessels. Otherwise no evidence of aortic aneurysm or dissection at this time. The celiac, superior mesenteric, bilateral renal and inferior mesenteric arteries are grossly patent. No evidence of central pulmonary embolism. CHEST: Mediastinum: Heart is normal in size. No pericardial effusion. A few borderline prominent mediastinal lymph nodes are nonspecific. Coronary artery calcifications. Hypodense lesion in the inferior left thyroid. This can be evaluated with thyroid ultrasound. Pleural cavity: No sizable pleural effusions or pneumothorax. Lungs: Mild dependent atelectasis/ scarring in the lower lobes. Lungs are otherwise grossly clear. Chest wall/axilla: No axillary lymphadenopathy noted. ABDOMEN AND IMAGED PELVIS: Liver: No discrete hepatic lesions identified. Gallbladder and biliary system: Cholelithiasis. No gallbladder wall distention or pericholecystic fluid identified. No biliary ductal dilatation. Pancreas: Negative. Spleen: Negative. Adrenal Glands: Left adrenal nodule measuring approximately 2.6 cm in diameter. This can be further characterized with adrenal MRI. Kidneys: No hydroureteronephrosis. Bowel: No definite evidence of bowel obstruction. No free intraperitoneal air or fluid within the imaged abdomen and pelvis. Visualized appendix is normal caliber. Tiny fat containing umbilical hernia. Osseous structures: No destructive osseous lesions identified. IMPRESSION: No evidence of aortic aneurysm or dissection. Other findings as above. HS:Y Electronically Signed by:ÁNGEL NOLAN MD Date & Time: 05/08/2549 Dictated by: ÁNGEL NOLAN MD Dictation date and time: 05/08/2549 Primary Care Provider: NO PRIMARY CARE PROVIDER cc: STEPHEN VIZCAINO MD ~ IMAGES REVIEWED BY EDMD DR. VIZCAINO WHO AGREES WITH ABOVE FINDINGS Heart Score: Heart Score Response (Comments) Value History Slightly Suspicious 0 EKG Repolarization Disturb 1 Age >65 2 Risk Factors >3 or Hx ASHD 2 Troponin Normal limit 0 Total 5 Medical Decision Making Additional info obtained from: old records Differential Dx:Considerations: Include: angina, aortic dissection, chest wall pain, cholelithiasis, costochondritis, esophageal reflux/spasm, gastritis, myocardial infarction, pericarditis, pleuritis, pancreatitis, pneumonia, pneu mothorax, pulmonary embolus, other Departure Time of Disposition: 00:08 Disposition: 09 ADMITTED INPATIENT Admitted to Inpatient Unit: yes, to hospitalist Admission Level of Care: PCU with Tele Impression: Primary Impression: Chest pain Qualified Codes: R07.9 - Chest pain, unspecified Condition: Guarded Referrals: NO PRIMARY CARE PROVIDER (PCP) Education Educated: Patient Educated regarding: diagnosis Signature Scribe Signature: no scribe. Attestation: The note accurately reflects work and decisions made by me.Stephen Vizcaino MD 05/07/25 23:05 STEPHEN VIZCAINO MD May 07, 2025 23:05
[2025-05-08] VITALS (12 sets, daily range): BP systolic 142–184; BP diastolic 61–99; PULSE 60–83; RESP 16–22; TEMP 97.6–98.6; O2SAT 95–97
[2025-05-08] MEDS ORDERED: TIZA4CAP PO (00:22)
[2025-05-08] MEDS ORDERED: LEVO75TA PO (00:22)
--- NOTE | 2025-05-08 00:53 | RADIOLOGY REPORT ---
CTA AORTA DISSECTION W/ IV CONTRAST HISTORY: chest pain radiating to back tortous aorta COMPARISON: Chest x-ray obtained earlier the same day. TECHNIQUE: Helical axial CT images of the chest, abdomen and upper pelvis were obtained with intrave nous contrast. Multiplanar reformats. 3-D postprocessing is performed by technologist including TEVIN castro. One or more of the following radiation dose reduction techniques were used for this examinati on: automated exposure control, adjustment of the mA and/or kV according to patient size, use of iter ative reconstruction technique. FINDINGS: Vasculature: Scattered atherosclerotic changes involving the arch and aortoiliac vessels. Otherwise n o evidence of aortic aneurysm or dissection at this time. The celiac, superior mesenteric, bilateral renal and inferior mesenteric arteries are grossly patent. No evidence of central pulmonary embolism. CHEST: Mediastinum: Heart is normal in size. No pericardial effusion. A few borderline prominent mediastina l lymph nodes are nonspecific. Coronary artery calcifications. Hypodense lesion in the inferior left thyroid. This can be evaluated with thyroid ultrasound. Pleural cavity: No sizable pleural effusions or pneumothorax. Lungs: Mild dependent atelectasis/ scarring in the lower lobes. Lungs are otherwise grossly clear. Chest wall/axilla: No axillary lymphadenopathy noted. ABDOMEN AND IMAGED PELVIS: Liver: No discrete hepatic lesions identified. Gallbladder and biliary system: Cholelithiasis. No gallbladder wall distention or pericholecystic fl uid identified. No biliary ductal dilatation. Pancreas: Negative. Spleen: Negative. Adrenal Glands: Left adrenal nodule measuring approximately 2.6 cm in diameter. This can be further c haracterized with adrenal MRI. Kidneys: No hydroureteronephrosis. Bowel: No definite evidence of bowel obstruction. No free intraperitoneal air or fluid within the im aged abdomen and pelvis. Visualized appendix is normal caliber. Tiny fat containing umbilical hernia . Osseous structures: No destructive osseous lesions identified. IMPRESSION: No evidence of aortic aneurysm or dissection. Other findings as above. HS:Y
[2025-05-08] MEDS ORDERED: mag hydrox/Alum hydrox/simeth 30ml oral suspension PO PRN (01:35)
[2025-05-08] MEDS ORDERED: magnesium sulf-water 2g/50mL 50 ML IV PRN (01:35)
[2025-05-08] MEDS ORDERED: potassium Cl 40MEQ/1/2NS 520ml 520 ML IV PRN (01:35)
[2025-05-08] MEDS: PERFLUTREN PROTEIN-A MICROSPHR (Optison) 0.22 MG/ML 3ML VIAL IV ONE (01:35)
[2025-05-08] MEDS ORDERED: magnesium Cl slow-release 64mg tablet PO PRN (01:35)
[2025-05-08] MEDS ORDERED: HYDROcodone/acetaminophen 5mg/325mg tablet PO PRN (01:35)
[2025-05-08] MEDS ORDERED: potassium Cl 20 mEq SR tablet PO PRN ×2 (01:35)
[2025-05-08] MEDS ORDERED: ondansetron/PF 4mg/2ml inj IV PRN (01:35)
[2025-05-08] MEDS ORDERED: magnesium sulf-water 4G/100mL 100 ML IV PRN (01:35)
[2025-05-08] MEDS ORDERED: magnesium hydroxide 30ml (MOM) UD suspension PO PRN (01:35)
--- NOTE | 2025-05-08 01:40 | HISTORY AND PHYSICAL-Residence ---
History & Physical Providers to CC Resident Creating Document: BREEZYRONALDO WILLSONKATESH, IRMA ~ History of Present Illness Primary Medical Doctor: OR/[facility] Reason for Admit\Complaint: Chest pain History of Present Illness 74-year-old male, a Jehovah Witness(Ms. Champagne, at bedside) with past medical history of coronary artery disease CVA, type 2 diabetes mellitus, hypertension, hyperlipidemia, CAD, deep brain stimulator for essential tremors, lower backache, sleep apnea, BP hits, hypothyroidism, psoriasis presented to the ER with a chief complaint of chest pain for the past 3-4 days. Radiated into back on aggravated with taking breathe. He do reports upper back pain between the shoulder blades. He has reports swelling of legs. He is following Dr. Luther and is due for one chemical stress test. Denied palpitations, facial puffiness, wheezing, cough, syncope. Discussed discussions with the patient patient wants to be full code Allergies: Uncoded Allergies: BLOOD (Allergy, Severe, (CONGREGATIONAL REASON), 02/21/25) Home Medications Home Medications Active Losartan Potassium 50 Mg Tablet 50 Mg PO DAILY 30 Days Cymbalta* (Duloxetine HCl) 30 Mg Capsule.dr 30 Mg PO DAILY 30 Days Reported Zanaflex (Tizanidine HCl) 4 Mg Capsule 1 Cap PO HS 30 Days Synthroid* (Levothyroxine Sodium) Unknown Strength Tablet Unknown Dose PO DAILY 30 Days Aspirin 81 Mg Tab.chew 1 Tab.chew PO DAILY Jardiance (Empagliflozin) 25 Mg Tablet 1 Tab PO DAILY Hydrocodone-Apap 10-325 Tablet (Acetaminophen/Hydrocodone Bitart) 10mg/325mg Tablet Isosorbide Mononitrate Er (Isosorbide Mononitrate) 30 Mg Tab.er.24h 0.5 Tab PO QAM Flomax (Tamsulosin HCl) 0.4 Mg Cap.sr.24h 1 Cap PO DAILY Atorvastatin Calcium 80 Mg Tablet 1 Tab PO DAILY Nitrostat (Nitroglycerin) 0.4 Mg Tab.subl 0.4 Mg SL Metformin HCl 1,000 Mg Tablet 1 Tab PO Q12H 30 Days Past Medical History Past Medical History Coronary artery disease Hyperlipidemia Hypertension Sleep apnea BP has been Diabetes mellitus Hypothyroidism Chronic pain, Chronic back pain Psoriasis Past Surgical History Surgical History Comment Shoulder and elbow surgeries Left melanoma cancers sensory Deep brain stimulator for essential tremors Family History Family History: FH: COPD (chronic obstructive pulmonary disease) MOTHER FH: diabetes mellitus MOTHER Brother FH: myocardial infarction FATHER Past Social History Smoking: Non-Smoker Alcohol Use: None Drug Use: None Lives with: Spouse, Family Lives In: Home ROS All Other Systems: Reviewed and Negative ROS Reviewed in full and negative except for positive pertinent as in HPI Constitutional: Denies: no symptoms reported Cardiovascular: Reports: chest pain Exam Vitals: Vital Signs Date Time Temp Pulse Resp B/P (MAP) Pulse Ox O2 Delivery O2 Flow Rate FiO2 05/08/25 00:00 60 12 151/93 (112) 95 05/07/25 21:09 97.8 General: General: The patient is well developed, well nourished, nontoxic appearing and is in no acute distress. With deep brain stimulator. Skin: [place], warm and dry with no rashes. HEENT: Head was normocephalic and atraumatic. Eyes - pupils equal, round, reactive to light and accommodation. Extraocular movements were intact. Conjunctivae were nonicteric. The mouth and oropharynx were clear with moist mucous membranes. There were no pharyngeal exudates or erythema. Neck: Supple and nontender. There was no jugular venous distention, lymphadenopathy, thyromegaly or masses. Chest: No reproducible chest wall pain. Clear to auscultation bilaterally without wheezes, rales or rhonchi. No accessory muscle use. No dullness to percussion. Heart: Rate regular and rhythmic. S1, S2. No murmurs. Palpation of the chest wall was normal. No rubs or thrills. Abdomen: Soft, nontender and nondistended. Positive bowel sounds. No guarding or rebound. No hepatosplenomegaly or palpable masses. Extremities: Pitting edema to bilateral lower extremities. No clubbing or cyanosis. The patient moves all extremities. Pulses were equal and symmetric. Neurologic: Cranial nerves II-XII were intact. Sensation was intact to light touch throughout. Motor strength was 5/5 in all four extremities. Deep tendon reflexes were intact in both upper and lower extremities. Psychologic: The patient was oriented to person, place and time. The patient demonstrated appropriate judgement and insight. Skin: [place], warm and dry with no rashes. Diagnostic Data Last Recorded Lab Results: 05/07/25212905/07/252129 Advance Care Planning Advanced Care planning: Add on additional 30 min Additional Plan Chest pain likely secondary to unstable angina versus NSTEMI Heart score of seven EKG showed T-wave inversions in V1 V2, V4 V5 V6 Troponins are negative, proBNP is 100 On nitro, aspirin 81, atorvastatin 80 On Norcos PRN & morphine PRN for pain management Patient is in NPO & being evaluated with Lexiscan CT angiographiy is negative for aortic dissection Consult cardiology in the a.m. Hyperlipidemia Ordered lipid panel Started on 80 mg of atorvastatin and we will taper the dose based upon LDL Hypertension Blood pressure and shearing 180s and then trended down to 150s We will continue losartan 50 Type 2 diabetes mellitus Ordered A1c Blood glucose is in 220s On hyperglycemia hypoglycemia Humalog insulin medium dose protocol Continue to monitor blood glucose with a target of 140-180 Hypothyroidism Order TSH and follow up with the results .start the medication after reconciliation BPH We will continue tamsulosin 0.4 mg Code status: Full code DVT prophylaxis: SubQ heparin PT: Ordered Prognosis: Guarded Diet: NPO Jose Mi IM resident Pt was discussed with the resident team I agree with plan of care and assessment and plan as documented Date of Service: May 08, 2025 Billing Provider: EVE CERVANTES MD, VENKATESH, RES May 08, 2025 01:40 EVE CERVANTES MD May 08, 2025 04:24
[2025-05-08] MEDS: normal saline 1000ml 1,000 ML IV SCH (01:55)
[2025-05-08 02:19] LABS: PHOSPHORUS 3.9 MG/DL (2.3-4.5)
[2025-05-08] MEDS ORDERED: dextrose 50%-water 50ml dispensing syringe IV PRN ×2 (02:35)
[2025-05-08] MEDS ORDERED: DEXTROSE 15 GM of carb/4 tabs (each vial/BOTTLE has 4 tablets) PO PRN ×2 (02:35)
[2025-05-08] MEDS ORDERED: glucagon, human recombinant 1mg kit SUBCUT PRN (02:35)
[2025-05-08 02:58] LABS: LEUKOCYTE ESTERASE ,URINE NEGATIVE (Neg); OCCULT BLOOD,URINE NEGATIVE (Neg)
[2025-05-08 03:01] LABS: NITRITES, URINE NEGATIVE (Neg); UA COLLECTION TYPE VOIDED
[2025-05-08 03:14] LABS: SQUAMOUS EPITHELIAL CELL,UR NONE SEEN /LPF (FEW)
[2025-05-08] MEDS: INSULIN LISPRO 100 UNIT/ML INSULN.PEN MULTI-DOSE SQ SCH (06:54)
[2025-05-08] MEDS: docusate sod 100mg capsule PO SCH (07:36)
[2025-05-08] MEDS: K and/or MAG REPLACEMENT MC SCH (07:36)
[2025-05-08] MEDS: heparin, porcine 5000 units/ml vial SQ SCH (07:37)
[2025-05-08] MEDS: aspirin 81mg, enteric-coated 1 TAB TABLET.DR PO SCH (07:49)
[2025-05-08] MEDS: duloxetine 30mg CAPSULE.DR PO SCH (07:50)
[2025-05-08] MEDS: EMPAGLIFLOZIN 25 MG TABLET PO SCH (07:50)
[2025-05-08] MEDS ORDERED: isosorbide mononitrate 30mg tab.SR.24H PO SCH (08:00)
[2025-05-08] MEDS: regadenoson 0.4mg/5ml syringe IV ONE (13:47)
--- NOTE | 2025-05-08 16:28 | RADIOLOGY REPORT ---
Reason for study/Clinical History: Unstable angina Comparison Study: None Myocardial Perfusion Study with SPECT Technique: The patient received an intravenous injection of 8.7 mCi of technetium-99m Sestamibi whi carlos at rest. After a short delay, SPECT tomographic images of the heart were obtained. The patient kanchan harris went to the stress lab where they received an intravenous Lexiscan utilizing standard protocol. 37 mCi of technetium-99m Sestamibi was injected intravenously immediately after the start of the in fusion. Gated SPECT tomographic images of the heart were acquired and processed. Findings: Rotating planar images show no significant attenuation artifact. Non reversible defect is present in the inferior wall and apex. The left ventricular ejection fraction is 28 %. 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
[2025-05-08] MEDS: pantoprazole 40mg Tablet.DR PO ONE (16:43)
--- NOTE | 2025-05-08 18:47 | CARDIOLOGY REPORT ---
APPROVED REPORT EXAM: Comprehensive 2D, Doppler, and color-flow Echocardiogram. Patient Location: [facility] B Blood Pressure: 165/83 mmHg Heart Rate: 78 bpm Rhythm: Sinus Rhythm Indications Chest Pain Hx of CAD/ [place] Hx of CVA/TIA Hypertension HDL PTCA Stents X 1 (2004) Extractions Technician: Bunny Luther MD Previous echo: 01/13/2025 EF: 60% 2D Dimensions RVDd 3.6 cm LA Diam4.4 cm RA Minor3.9 cmLVOT Diameter 2.04 (1.8-2.4cm) IVC 18.54 mmCO 3.9 L/min M-Mode Dimensions RVDd 3.57 (2.1-3.2cm) Left Atrium(MM) 3.70 (2.5-4.0cm) IVSd 1.34 (0.7-1.1cm) LVDd 4.54 (4.0-5.6cm) Aortic Root 3.91 (2.2-3.7cm) PWd 1.42 (0.7-1.1cm) Aortic Cusp Exc 1.83 (1.5-2.0cm) IVSs 1.34 cm MV EPSS 1.2 (<0.5cm) LVDs 3.16 (2.0-3.8cm) FS (%) 30 % PWs 1.90 cm ESV(Teich) 39.7 ml LVEF(%) 58 (>50%) Aortic Valve AoV Peak Jim. 209.6 cm/s AoV VTI 41.0 cm AO Peak GR. 17.6 mmHg AO Mean GR. 9 mmHg LVOT VTI 30.33 cm LVOT Peak Jim. 155.3 cm/s WILLIE(VTI)/BSA 2.41 cm2/m2 WILLIE (VTI) 2.41 cm2 AI P 1/2 Time 568 ms Mitral Valve MV E Velocity 63.9 cm/s MV Peak Gr. 6 mmHg MV DECEL TIME 232 ms MV A Velocity 103.4 cm/s MV Mean Gr. 2 mmHg MV PHT 68 ms E/A Ratio 0.6 MVA (PHT) 3.24 cm2 MV MOpt265.7 cm/sMV VMean61.9 cm/s MVA VTI3.38 cm2MV VTI29.2 cm TDI Medial E' P. V 9.93 cm/s E/Medial E' 6.4 Tricuspid Valve TR P. Velocity 174 cm/s RAP ESTIMATE 10 mmHg TR Peak Gr. 12 mmHg RVSP 22 mmHg LEFT VENTRICLE Normal LV size and function. Mild concentric hypertrophy. Overall LVEF is 60%. RIGHT VENTRICLE Right ventricle is moderately dilated with normal function. Estimated PA systolic pressure is 22 mmHg . ATRIA Left atrium is mildly dilated. The right atrium size appears to be normal. AORTIC VALVE Trileaflet AV appears sclerotic without stenosis. Mild insufficiency. MITRAL VALVE Mild MV annular calcification without stenosis. Trace regurgitation. TRICUSPID VALVE TV appears structurally normal with trace regurgitation. PULMONIC VALVE Grossly normal PV without stenosis, physiologic insufficiency. GREAT VESSELS Aortic root is dilated and measures at 3.9 cm. IVC is normal in size and collapses less t villa 50% with inspiration. PERICARDIUM Normal pericardium. No pericardial effusion seen. Other Information Study Quality: Fair. TDS due to body habitus. Conclusion Normal LV size and function. Mild concentric hypertrophy. Overall LVEF is 60%. Right ventricle is moderately dilated with normal function. Estimated PA systolic pressure is 22 mmHg . Left atrium is mildly dilated. The right atrium size appears to be normal. Trileaflet AV appears sclerotic without stenosis. Mild insufficiency. Mild MV annular calcification without stenosis. Trace regurgitation. TV appears structurally normal with trace regurgitation. Aortic root is dilated and measures at 3.9 cm. Normal pericardium. No pericardial effusion seen.
[2025-05-09] VITALS (9 sets, daily range): BP systolic 122–181; BP diastolic 66–97; PULSE 62–84; RESP 14–18; TEMP 97.1–97.9; O2SAT 92–100
[2025-05-09 06:49] LABS: MEAN PLATELET VOLUME 8.8 FL (7.4-10.4); RED CELL DISTRIBUTION WIDTH 13.8 % (11.5-14.5)
[2025-05-09 07:21] LABS: CHOL/HDL RATIO 1.9 (0.00-4.99); CREATININE 0.69 MG/DL (0.60-1.10); LDL CHOLESTEROL 42 MG/DL (50-100); TOTAL CARBON DIOXIDE 23.1 MMOL/L (24-32); eCRCL 92 ML/MIN; eGFR > 90 ML/MIN
[2025-05-09] MEDS ORDERED: aspirin 81mg, enteric-coated 1 TAB TABLET.DR PO SCH (08:00)
[2025-05-09] MEDS: isosorbide mononitrate 30mg tab.SR.24H PO SCH (08:54)
[2025-05-09] MEDS: pantoprazole 40mg Tablet.DR PO SCH (08:55)
[2025-05-09] MEDS: cloNIDine 0.2 MG/24 HR patch (7 day patch) TD ONE (10:50)
[2025-05-09] MEDS: hydrALAZINE 20mg/ml inj. IV PRN (10:54)
--- NOTE | 2025-05-09 12:51 | PROGRESS NOTE ---
Daily Progress Note Providers to CC ~ Antibiotic Timeout Antibiotic Ordered?: No Subjective No acute events overnight. Patient examined at bedside. No new complaints, not in acute distress. Patient denies chest pain, sob, palpitations, abdominal pain, n/v/d. Vss, tele sinus in 60s. Labs unremarkable. Resistant hypertension, antihypertensives adjusted. Objective Vital Signs Date Time Temp Pulse Resp B/P (MAP) Pulse Ox O2 Delivery O2 Flow Rate FiO2 05/09/25 11:25 84 122/66 (84) 05/09/25 11:00 97.5 16 96 Room Air Result Diagram: 05/09/2561305/09/25 06 Physical Exam General: Generalized weakness, A&Ox 3, NAD HEENT: Normocephalic, PERRLA Neck: Supple, trachea midline, no JVD Chest: Clear to auscultation bilaterally Cardiovascular: RRR, S1&S2 GI: Soft and nontender Extremities: No cyanosis/clubbing/or edema SHIP KEEPER: CN II-XII intact, no focal deficits Musculoskeletal: No paraspinal muscle tenderness, no muscle spasm Skin: Warm and intact Problem\Assessment\Plan Assessment Hypertensive emergency- POA Chest pain likely 2/2 HTN emergency HTN Hyperlipidemia NIDDM Class III obesity Hx IL s/p stent (2004, Dr. Margie Luther) Hypothyroidism BPH -EKG showed T-wave inversions in V1 V2, V4 V5 V6, trops negative, pBNP 100, CTA negative aortic dissection, Candelaria negative for reversible ischemia but shows chronic infarct consistent with past medical history, A1c 6.8%, LDL42, TGL 103 -05/09: tele sinus in 60s Plan -statin, aspirin, prn nitroglycerin, tamsulosin, hyper/hypoglycemic protocol, losartan, amlodipine, hydralazine, isosorbide, clonidine Code status: Full code DVT prophylaxis: heparin Date of Service: May 09, 2025 Billing Provider: JEREMY BEDOYA Common Visit Codes: [id number] INP/OBS CARE(HIGH) JEREMY BEDOYA May 09, 2025 12:51
[2025-05-09] MEDS: HYDROcodone/acetaminophen 10/325mg tab PO PRN (13:48)
[2025-05-10 02:00] VITALS: BP 149/74; PULSE 63; RESP 17; TEMP 97.7; O2SAT 95
[2025-05-10 06:17] LABS: MEAN PLATELET VOLUME 9.4 FL (7.4-10.4); RED CELL DISTRIBUTION WIDTH 13.9 % (11.5-14.5)
[2025-05-10 06:34] LABS: CREATININE 0.81 MG/DL (0.60-1.10); TOTAL CARBON DIOXIDE 24.9 MMOL/L (24-32); eCRCL 79 ML/MIN; eGFR > 90 ML/MIN
[2025-05-10 07:00] VITALS: BP 152/78; PULSE 63; RESP 20; TEMP 97.8; O2SAT 96
[2025-05-10 11:00] VITALS: BP 148/98; PULSE 79; RESP 16; TEMP 98; O2SAT 94
[2025-05-10] MEDS ORDERED: HYDR25TA90 PO (12:27)
[2025-05-10] MEDS ORDERED: NOR5T PO (12:27)
--- NOTE | 2025-05-10 14:53 | DISCHARGE SUMMARY ---
Discharge Summary Providers to ~ Discharge Summary Admission Diagnosis: Chest pain Hospital Course DATE OF ADMISSION: 05/08/2025 DATE OF DISCHARGE: 05/10/2025 Condition on DC: Stable New Medications: Hydralazine Hcl* (Apresoline*) 25 Mg Tablet 25 MG PO Q8H for 30 Days, #90 TAB Amlodipine Besylate (Amlodipine Besylate) 5 Mg Tablet 10 MG PO DAILY for 30 Days, #30 TAB Continued Medications: Aspirin (Aspirin) 81 Mg Tab.chew 1 TAB.CHEW PO DAILY, TAB.CHEW Atorvastatin Calcium (Atorvastatin Calcium) 80 Mg Tablet 1 TAB PO DAILY Duloxetine Hcl* (Cymbalta*) 30 Mg Capsule.dr 30 MG PO DAILY for 30 Days, #30 CAP.SR Empagliflozin (Jardiance) 25 Mg Tablet 1 TAB PO DAILY Hydrocodone Bit/Acetaminophen (Hydrocodone-Apap 10-325 Tablet) 10mg/325mg Tablet Isosorbide Mononitrate (Isosorbide Mononitrate Er) 30 Mg Tab.er.24h 0.5 TAB PO QAM Levothyroxine Sodium* (Synthroid*) Unknown Strength Tablet Unknown Dose PO DAILY for 30 Days, #30 TAB Losartan Potassium (Losartan Potassium) 50 Mg Tablet 50 MG PO DAILY for 30 Days, #30 TAB Metformin HCl (Metformin HCl) 1,000 Mg Tablet 1 TAB PO Q12H for 30 Days, #60 TAB Nitroglycerin (Nitrostat) 0.4 Mg Tab.subl 0.4 MG SL for chest pain, TAB Tamsulosin Hcl (Flomax) 0.4 Mg Cap.sr.24h 1 CAP PO DAILY Tizanidine Hcl (Zanaflex) 4 Mg Capsule 1 CAP PO HS for 30 Days, #90 CAP 0 Refills DAWIT SOUTH MD May 10, 2025 14:53
== END 2025-05-10 14:07 | disposition home or self-care (01) | DRG 305 ==
LOC: ER 21:06 → ED HOLD 05-08 00:17 → PCU 3S 05-08 09:43
PROVIDERS: ADMIT Internal Medicine; ATTEND Nurse Practitioner Family
PROC: B32T1ZZ Computerized Tomography (CT Scan) of Left Pulmonary Artery using Low Osmolar Contrast (ICD-10-PCS; 2025-05-07)
PROC: B3201ZZ Computerized Tomography (CT Scan) of Thoracic Aorta using Low Osmolar Contrast (ICD-10-PCS; 2025-05-07)
PROC: B32S1ZZ Computerized Tomography (CT Scan) of Right Pulmonary Artery using Low Osmolar Contrast (ICD-10-PCS; 2025-05-07)
PROC: 4A02XM4 Measurement of Cardiac Total Activity, External Approach (ICD-10-PCS; principal; 2025-05-08)
PROC: 3E033HZ Introduction of Radioactive Substance into Peripheral Vein, Percutaneous Approach (ICD-10-PCS; 2025-05-08)
DX: I16.1 Hypertensive emergency (principal); Z68.41 Body mass index [BMI] 40.0-44.9, adult; E66.813 Obesity, class 3; E78.00 Pure hypercholesterolemia, unspecified; I25.10 Atherosclerotic heart disease of native coronary artery without angina pectoris; J44.9 Chronic obstructive pulmonary disease, unspecified; E03.9 Hypothyroidism, unspecified; N40.0 Benign prostatic hyperplasia without lower urinary tract symptoms; I10 Essential (primary) hypertension; E11.9 Type 2 diabetes mellitus without complications; I25.2 Old myocardial infarction; Z86.73 Personal history of transient ischemic attack (TIA), and cerebral infarction without residual deficits
CPT/HCPCS: 36415; 71045; 71275; 74174; 78452; 80048; 80053; 80061; 81001; 82948; 83036; 83605; 83735; 83880; 84100; 84132; 84484; 85025; 87040; 93005; 93017; 93306; 97116; 97161; 97530; 99285; A6258; A9500; G0378; J0360; J1644; J1815; J2270; J2785; J7030; Q9967